=== PATIENT | male | born 1980 | race Caucasian/White ===

== ENCOUNTER 2017-07-16 02:32 | Emergency (ER) | payer MEDICAID ==
[~2017-07-16] VITALS: Ht 167.6 cm; Wt 109.5 kg
[2017-07-16 03:21] VITALS: Ht 167.6 cm; Wt 109.5 kg
[2017-07-16 08:46] VITALS: BP 104/58
== END 2017-07-16 08:46 | disposition home or self-care (01) ==
LOC: ED 02:32
DX: J11.1 Influenza due to unidentified influenza virus with other respiratory manifestations (principal); F17.200 Nicotine dependence, unspecified, uncomplicated; Z71.6 Tobacco abuse counseling
CPT/HCPCS: 99406; Q0092

== ENCOUNTER 2019-11-16 16:00 | Emergency (ER) | payer MEDICAID ==
[~2019-11-16] VITALS: Ht 172.7 cm; Wt 111.1 kg
[2019-11-16 16:12] VITALS: Ht 172.7 cm; Wt 111.1 kg
[2019-11-16 17:21] LABS: BASOPHIL % 0.3 % (0-2); PLATELET COUNT 267 x10^3mcL (130-400)
[2019-11-16 17:50] LABS: CALCIUM 9.5 mg/dL (8.5-10.1); CARBON DIOXIDE 27.1 mmol/L (21-32); CHLORIDE SERUM 106 mmol/L (98-107); CREATININE SERUM 0.9 mg/dL (0.7-1.3); GFR1 > 60 mL/min; GLUCOSE SERUM 129 mg/dL (74-106); POTASSIUM SERUM 4.1 mmol/L (3.5-5.1); SODIUM SERUM 142 mmol/L (136-145)
[2019-11-16 17:54] LABS: ALBUMIN 4.2 g/dL (3.4-5.0); ALKALINE PHOSPHATASE 64 U/L (46-116); ALT/SGPT 73 U/L (16-63); AST/SGOT 29 U/L (15-37); BILIRUBIN TOTAL 0.21 mg/dL (0.20-1.00); TOTAL PROTEIN, SERUM 7.2 g/dL (6.4-8.2)
[2019-11-16 19:30] VITALS: BP 122/82
== END 2019-11-16 19:40 | disposition home or self-care (01) ==
LOC: ED 16:00
DX: R07.89 Other chest pain (principal); F17.210 Nicotine dependence, cigarettes, uncomplicated
CPT/HCPCS: 36415; Q0092